=== PATIENT | female | born 2000 | race Caucasian/White ===

== ENCOUNTER 2022-07-25 13:54 | Emergency (ER) | payer BC, SELFPAY ==
[2022-07-25 13:56] VITALS: BP 132/92; PULSE 126; RESP 18; TEMP 36.6; O2SAT 100; BMI 18.3
[2022-07-25 14:19] VITALS: BP 132/92; PULSE 126; RESP 18; TEMP 36.6; O2SAT 100
[2022-07-25] MEDS: 0.9% Normal Saline 1,000 ML 1000 ML IV (14:51)
--- NOTE | 2022-07-25 14:51 | EDS_ITS ---
HPI History of Present Illness Chief Complaint: Cellulitis Informant: patient Onset/Context/Timing Onset: Days Context: Gradual Onset Timing: Continuous Quality: Pressure Location: Upper lip Worsened by: Nothing Relieved by: Ice Narrative Narrative: Patient presents with pain and swelling to her upper lip that has been gotten progressively worse over the past few days. Patient states she was recently started on Bactrim for this. Patient states she started this yesterday and her swelling is worse today. Patient states it is radiating into her left cheek area. Patient states it is mainly over the upper lip. Patient denies any difficulty breathing or difficulty swallowing. Patient noted a pimple to the area underneath her nose. Patient denies any discharge or drainage. Patient denies any other rashes. Patient denies any fevers or chills. PFSH PFSH Medical History no medical history no medical history Home Medications cephalexin 500 mg capsule 500 mg PO Q6 #40 CAPSULES 07/25/22 [Rx Last Taken Unknown] sulfamethoxazole 800 mg-trimethoprim 160 mg tablet (Bactrim DS) 1 tab PO DAILY 07/25/22 [History Last Taken Unknown] Allergy/AdvReac Type Severity Reaction Status Date / Time No Known Allergies Allergy Verified 07/25/22 13:55 Surgical History no surgical history no surgical history Social History Smoking Status: Never smoker ROS ROS ED Constitutional Constitutional ED: Denies chills or fever(s) Eyes Eyes: Denies blurry vision or change in vision ENT ENT ED: Denies rhinorrhea or sore throat Cardiovascular Cardiovascular: Denies chest pain or palpitations Respiratory/Chest Respiratory/Chest: Denies cough or dyspnea Gastrointestinal Gastrointestinal: Denies nausea or vomiting Genitourinary Genitourinary ED: Denies dysuria or hematuria Musculoskeletal Musculoskeletal: Denies back pain or neck pain Integumentary Reports rash; Denies abscess Neurologic Neurologic: Denies headache(s) or weakness Allergic/Immunologic Allergic/Immunologic ED: Denies mouth swelling or urticaria EXAM Physical Exam Const Vital Signs: 07/25/22 13:56 07/25/22 14:17 07/25/22 14:19 Temperature 97.8 F 97.8 F Temperature Source Temporal Temporal Pulse Rate 126 H 126 H Respiratory Rate 18 18 Respiratory Effort Normal Non-Labored Respiratory Pattern Normal Blood Pressure 132/92 H 132/92 H Blood Pressure Mean 105 105 Pulse Ox 100 100 Oxygen Delivery Method Room Air Room Air 07/25/22 16:07 Temperature Temperature Source Pulse Rate 88 Respiratory Rate 16 Respiratory Effort Respiratory Pattern Blood Pressure 120/79 Blood Pressure Mean 92 Pulse Ox 98 Oxygen Delivery Method Room Air Positive well nourished and well developed General Appearance ED: well developed and NAD HEENT Reports moist mucous membranes HEENT Narrative: There is tenderness and edema over the upper lip. There are some induration. Oral mucosa is pink and moist. Oropharynx is clear. Airway is patent. Teeth are intact. There is no gingival edema. There is no swelling of the lower lip. There is no sublingual edema or erythema. Neck supple and no JVD Neuro oriented x3, CN's II-XII intact bilaterally and no sensory deficits noted Sensorium / Orientation: alert Motor Exam: strength 5/5 throughout Psych mental status grossly normal Skin Skin Narrative: There is tenderness and induration over the upper lip, slightly worse on the left. There are 2 pustules in the midline at the base of the nasal septum. There is no fluctuance. There is no discharge or drainage. There is no surrounding erythema or warmth. MDM MDM MDM Narrative Medical decision making narrative: Patient was given a liter of IV fluids. Patient was given a dose of Unasyn here. Patient will be instructed to continue the Bactrim as prescribed. Patient will be given a prescription for Keflex to take in addition to this. Patient was instructed to use warm compresses to the area. Patient was instructed to follow-up with her primary care physician in 5 to 7 days. Patient understood and was agreeable with the plan. All questions were answered. Treatment and Re-Evaluation Narrative: His heart rate improved to 88 after IV fluids. Discharge Plan Triage Chief Complaint: Cellulitis ED Provider: John Fajardo Dx/Rx/DC Orders Clinical Impression: Cellulitis of face Instructions: ED Cellulitis, Facial Prescriptions: New cephalexin [cephalexin] 500 mg capsule 500 mg PO Q6 Qty: 40 0RF No Action sulfamethoxazole-trimethoprim [Bactrim DS] 800-160 mg Tablet 1 tab PO DAILY Primary Care Provider: [facility] Doctor,Out of Referrals: [facility] Doctor,Out of [Primary Care Provider] - 3-5 Days Disposition Disposition: Home, Self Care
[2022-07-25 16:07] VITALS: BP 120/79; PULSE 88; RESP 16; O2SAT 98
== END 2022-07-25 16:21 | disposition home or self-care (01) ==
PROVIDERS: Emergency Provider Emergency Medicine; Visit Provider Emergency Medicine
DX: L03.211 Cellulitis of face (principal)
CPT/HCPCS: 96365; 99283; J7030; J0295

== ENCOUNTER 2022-07-26 09:56 | Emergency (ER) | payer BC, SELFPAY ==
[2022-07-26 09:57] VITALS: BP 117/89; PULSE 90; RESP 14; TEMP 36.3; O2SAT 100; BMI 18.8
[2022-07-26 10:09] VITALS: BP 117/89; PULSE 90; RESP 14; TEMP 36.3; O2SAT 100
--- NOTE | 2022-07-26 10:14 | EX.ED.DYSGE1 ---
HPI <LATRICIA Sherman - Last Filed: 07/26/22 12:37> History of Present Illness Chief Complaint: Cellulitis Narrative Narrative: Patient is a 21-year-old female with no significant medical history presents to the emergency department for ongoing cellulitis to the left nares, left upper lip. This is the patient's third visit to medical functional for this issue. Patient was seen here yesterday, given IV Unasyn, she was on Bactrim at that time, patient was added with Keflex. Patient states that she continued to have worsening pain, she is continue to have worsening swelling. Patient now has pain to the upper lip into her cheek. Patient states it is starting to affect her eye. Patient states to have subjective chills. She denies any nausea or vomiting. Denies any history of shortness of breath. PFSH <LATRICIA Sherman - Last Filed: 07/26/22 12:37> PFSH Medical History no medical history Home Medications cephalexin 500 mg capsule 500 mg PO Q6 #40 CAPSULES 07/25/22 [Rx Last Taken Unknown] sulfamethoxazole 800 mg-trimethoprim 160 mg tablet (Bactrim DS) 1 tab PO DAILY 07/25/22 [History Last Taken Unknown] Allergy/AdvReac Type Severity Reaction Status Date / Time No Known Allergies Allergy Verified 07/26/22 09:59 Social History Smoking Status: Never smoker ROS <LATRICIA Sherman - Last Filed: 07/26/22 12:37> ROS ED ROS Narrative Constitutional: Negative for fever, weight loss, weakness. Positive for chills Eyes: Negative for vision loss, vision change, double vision ENT: Negative for any sore throat, ear pain, congestion. Positive for redness and swelling to the left Mck[place], drainage, swelling to the left lip, facial pain to the left side Cardiovascular: Negative for any chest pain, tightness, palpitations Respiratory: Negative for any cough, sputum production, hemoptysis, dyspnea, dyspnea on exertion, orthopnea Gastrointestinal: Negative for any abdominal pain, nausea, vomiting, diarrhea, constipation, blood in stool, blood in vomit : Negative for any urinary frequency, dysuria, retention, blood in urine Muscle skeletal: Negative for any muscle joint pain, stiffness, myalgias, arthralgias, neck pain, back pain Neurological: Negative for any headache, syncope, numbness or tingling, dizziness Skin: Negative for any rashes, lumps, itching, abrasions, lacerations Psychiatric: Negative for any depression, anxiety, stress, suicidal ideation, homicidal ideation Hematologic: Negative for any easy bruising, excessive bruising, easy bleeding Allergies: Negative for any eczema, hives, rash EXAM <LATRICIA Sherman - Last Filed: 07/26/22 12:37> Physical Exam Narrative Exam Narrative: Vital signs reviewed. Patient is in no respiratory distress. Vital signs are stable HEET: Head normocephalic atraumatic, TMs clear bilaterally. Posterior pharynx is clear, moist mucous membranes. Patient's left nares shows some erythema, slight drainage. There is induration. Patient has significant swelling to the left lip, pain on palpation to the left frontal and maxillary sinus. Patient has slight edema around her eye however no specific eye pain. Patient's mucous membranes are normal. There is induration, tenderness to the left upper lip. There is no drainage in her mouth. Patient able speak complete sentences. Neck: Supple with no lymphadenopathy or tenderness. No signs of meningismus, negative jolt sign. Cardiac: Regular rate and rhythm no murmurs gallops or rubs, equal peripheral pulses bilaterally. Respiratory: Lungs clear to auscultation bilaterally. No chest tenderness. Abdomen: Soft, nontender, nondistended. No abdominal bruit or pulsatile masses. No hepatosplenomegaly Extremities: No peripheral edema, no signs of gross trauma or deformity. Active full range of motion of all extremities. Neuro: Cranial nerves II through XII intact, no focal neurological deficits. Skin: Clean dry and intact with no rash, purpura, petechiae, vesicles or pustules. Backs/flank: No CVA tenderness, no midline spinal tenderness, no deformity. Psych: Normal mood and affect. No SI, HI or acute psychosis. Const Vital Signs: 07/26/22 09:57 07/26/22 10:09 07/26/22 12:21 Temperature 97.3 F L 97.3 F L 98.3 F Temperature Source Temporal Oral Oral Pulse Rate 90 90 92 Respiratory Rate 14 14 16 Blood Pressure 117/89 H 117/89 H 119/60 Blood Pressure Mean 98 98 79 Pulse Ox 100 100 100 Oxygen Delivery Method Room Air Room Air Room Air Positive well nourished and well developed General Appearance ED: well developed <Osito Kasper MD - Last Filed: 07/26/22 15:07> Physical Exam Const Vital Signs: 07/26/22 09:57 07/26/22 10:09 07/26/22 12:21 Temperature 97.3 F L 97.3 F L 98.3 F Temperature Source Temporal Oral Oral Pulse Rate 90 90 92 Respiratory Rate 14 14 16 Blood Pressure 117/89 H 117/89 H 119/60 Blood Pressure Mean 98 98 79 Pulse Ox 100 100 100 Oxygen Delivery Method Room Air Room Air Room Air MDM <LATRICIA Sherman - Last Filed: 07/26/22 12:37> MDM Lab Data Labs: Laboratory Results - last 24 hr 07/26/22 07/26/22 07/26/22 10:37 10:37 10:37 WBC 10.3 RBC 4.25 Hgb 12.3 Hct 37.6 MCV 88.5 MCH 28.9 MCHC 32.7 RDW Std Deviation 43.5 RDW Coeff of Frances 13.3 Plt Count 311 MPV 10.0 Immature Gran % (Auto) 0.300 Neut % (Auto) 80.1 H Lymph % (Auto) 12.9 L [place] % (Auto) 6.2 Eos % (Auto) 0.3 Baso % (Auto) 0.2 Absolute Neuts (auto) 8.2 H Absolute Lymphs (auto) 1.32 Nucleated RBC % 0 Sodium 136 Potassium 4.3 Chloride 107 Carbon Dioxide 22.0 Anion Gap 7 BUN 12 Creatinine 0.67 Estim Creat Clear Calc 108.66 Est GFR (MDRD) Af Amer 142 Est GFR (MDRD) Non-Af 118 BUN/Creatinine Ratio 17.8 Glucose 87 Lactic Acid 1.5 Calcium 9.1 Radiography Diagnostic Testing: Clinical Impression(s) from Imaging Studies Facial/Sinus 07/26/22 10:16 IMPRESSION: 1. 2.2 x 0.7 x 2 cm irregular rim-enhancing early abscess in the upper lip buccal space extending to the left of midline but no associated bronchogenic abscess or periapical abscess. 2. Benign reactive nodes in the suprahyoid neck. 3. Moderate mucosal thickening in the left maxillary sinus, mild mucosal thickening in the right maxillary sinus and mild mucosal thickening of the ethmoid sinuses. Electronically Signed: Osito Smiley MD at 11:56 EST , Treatment and Re-Evaluation Narrative: All radiologic examinations were read, reviewed by the emergency department attending. From these reads, a plan of care will be put in place. Patient appears to be in no respiratory distress, patient appears nontoxic, vital signs are stable. Patient presents to the emergency department for ongoing swelling to the left nares, left upper lip. This is the patient's third visit to medical professional for this issue, at this time I believe that more of a work-up needs to be completed. Patient will have IV fluids, IV antibiotics, as well as a CT scan of the maxillofacial bones and soft tissue with IV contrast. Patient received some basic laboratory values, patient CBC was unremarkable, chemistries were unremarkable. Patient did receive a CT scan of the maxillofacial area, there was a 2.2 x 0.7 x 2 cm irregular rim-enhancing early abscess. This is of the upper lip. Benign reactive nodes in the suprahyoid neck. However there is no evidence to suspect any deep tissue infection. Patient did receive IV fluids as well as IV vancomycin. Patient is currently on Keflex as well as Bactrim. I did speak with the hospitalist regarding admission however hospitalist does not feel the patient needs admitted at this time. I did speak with the patient, secondary to being no significant signs of deep tissue infection, no signs or symptoms of sepsis, I believe that this is appropriate. Patient will continue the Keflex as well as the Bactrim. She will use warm compresses. At this time consider I&D however there is no specific area to I&D at this time. Patient will continue to use warm compress as well as the antibiotics. She was given strict return precaution. Patient was accompanied by her friend who also verbally understand importance of follow-up. Patient will follow-up with ear nose and throat. As well as her PCP. Patient is happy with plan of care and stable for discharge. <Osito Kasper MD - Last Filed: 07/26/22 15:07> [facility] Narrative Medical decision making narrative: I have personally performed a face to face assessment of the patient and have reviewed the BRIA Note. I performed a substantive portion of the visit including all aspects of the following. My sapp findings include: History is lip swelling, left upper lip, on antibiotics since , seen in the emergency department yesterday, reported worsening. Exam is afebrile. Vital signs noted. Nontoxic-appearing. Positive swelling left upper lip. No fluctuance. Medical Decision Making I reviewed the prior outpatient records. IV antibiotics, check CT, check labs. 1 dose of IV antibiotics. Discussed with hospitalist, who does not wish to admit or assigned to observation. Symptomatic treatment, continued antibiotics. Discharge. Other additions or changes: [None] Lab Data Attestation: I reviewed the patient's lab results. Labs: Laboratory Results - last 24 hr 07/26/22 07/26/22 07/26/22 10:37 10:37 10:37 WBC 10.3 RBC 4.25 Hgb 12.3 Hct 37.6 MCV 88.5 MCH 28.9 MCHC 32.7 RDW Std Deviation 43.5 RDW Coeff of Frances 13.3 Plt Count 311 MPV 10.0 Immature Gran % (Auto) 0.300 Neut % (Auto) 80.1 H Lymph % (Auto) 12.9 L [place] % (Auto) 6.2 Eos % (Auto) 0.3 Baso % (Auto) 0.2 Absolute Neuts (auto) 8.2 H Absolute Lymphs (auto) 1.32 Nucleated RBC % 0 Sodium 136 Potassium 4.3 Chloride 107 Carbon Dioxide 22.0 Anion Gap 7 BUN 12 Creatinine 0.67 Estim Creat Clear Calc 108.66 Est GFR (MDRD) Af Amer 142 Est GFR (MDRD) Non-Af 118 BUN/Creatinine Ratio 17.8 Glucose 87 Lactic Acid 1.5 Calcium 9.1 Radiography Diagnostic Testing: Clinical Impression(s) from Imaging Studies Facial/Sinus 07/26/22 10:16 IMPRESSION: 1. 2.2 x 0.7 x 2 cm irregular rim-enhancing early abscess in the upper lip buccal space extending to the left of midline but no associated bronchogenic abscess or periapical abscess. 2. Benign reactive nodes in the suprahyoid neck. 3. Moderate mucosal thickening in the left maxillary sinus, mild mucosal thickening in the right maxillary sinus and mild mucosal thickening of the ethmoid sinuses. Electronically Signed: Osito Smiley MD at 11:56 EST , Discharge Plan Triage Chief Complaint: Cellulitis ED Midlevel Provider: Edu Johnson ED Provider: Osito Kasper Dx/Rx/DC Orders Clinical Impression: Cellulitis of face, Abscess, Lip swelling Instructions: Abscess Drainage, ED Abscess Antibiotic Treatment Only, ED Cellulitis, Facial Prescriptions: No Action sulfamethoxazole-trimethoprim [Bactrim DS] 800-160 mg Tablet 1 tab PO DAILY cephalexin [cephalexin] 500 mg capsule 500 mg PO Q6 Qty: 40 0RF Primary Care Provider: Care Physician,No Primary Referrals: Edu Marlow MD [Med Staff - Active Staff] - [facility] Doctor,Out of [Non-Staff] - Activity Restrictions/Additional Instructions: Please use warm compresses. Take antibiotics until finished. Follow-up Disposition Disposition: Home, Self Care Discharge Date/Time: 07/26/22 12:47
--- NOTE | 2022-07-26 10:16 | CT_ITS ---
EXAM: CT MAXILLOFACIAL WITH INTRAVENOUS CONTRAST CLINICAL INDICATION: Swelling in upper lip and face x3 days. Evaluate for abscess. TECHNIQUE: Helically acquired images were obtained of the face with intravenous contrast. This CT exam was performed using one or more of the following dose reduction techniques: automated exposure control, adjustment of the mA and/or kV according to patient size, and/or use of iterative reconstruction technique. This report was created using [employer] report generation technology. CONTRAST: IV 100mL Isovue-370 RADIATION DOSE: CTDIvol = 29.38 mGy, DLP = 584.19 mGy-cm COMPARISON: None. FINDINGS: BONES/JOINTS: Unremarkable. No displaced fracture. No discrete lytic or blastic abnormalities. SOFT TISSUES: 2.2 x 0.7 x 2 cm irregularly rim-enhancing early abscess in the upper lip buccal space extending to the left of midline. No associated odontogenic abscess or periapical abscess. LYMPH NODES: Small benign reactive enhancing nodes in levels 1A, Ib, 2A and 2B and level 5A. ORBITS: Unremarkable. Both globes are unremarkable. Extraocular muscles are normal. Retrobulbar fat appears unremarkable. SUBMANDIBULAR/PAROTID GLANDS: Unremarkable. Normal parotid spaces and parapharyngeal spaces. Normal submandibular spaces and sublingual spaces. SINUSES: Moderate mucosal thickening in the left maxillary sinus. Mild mucosal thickening in the right maxillary sinus. Mild mucosal thickening in the ethmoid sinuses. Normal sphenoid sinus and left frontal sinus. Developmentally absent right frontal sinus. MASTOID AIR CELLS: Unremarkable as visualized. Clear. DENTAL: No acute findings. No periodontal osseous erosion. NASOPHARYNX: Unremarkable. Normal nasopharynx, oropharynx and hypopharynx. OTHER FINDINGS: Normal case monitor spaces. CT/Sinus/Facial Bone WITH Contras IMPRESSION: 1. 2.2 x 0.7 x 2 cm irregular rim-enhancing early abscess in the upper lip buccal space extending to the left of midline but no associated bronchogenic abscess or periapical abscess. 2. Benign reactive nodes in the suprahyoid neck. 3. Moderate mucosal thickening in the left maxillary sinus, mild mucosal thickening in the right maxillary sinus and mild mucosal thickening of the ethmoid sinuses. Electronically Signed: Osito Smiley MD at 11:56 EST ,
[2022-07-26] MEDS: 0.9% Normal Saline 1,000 ML 1000 ML IV (10:40)
[2022-07-26 10:45] LABS: Absolute Lymphocyte Count 1.32 X10^3/uL (0.83-4.51); Absolute Neutrophil Count 8.2 X10^3/uL (2.0-7.7); Basophil# 0.02 X10^3/uL; Basophil% 0.2 % (0-1); Eosinophil# 0.03 X10^3/uL; Eosinophils% 0.3 % (0-5); Hematocrit 37.6 % (37-47); Hemoglobin 12.3 g/dL (12.0-15.0); Lymphocyte # 1.32 X10^3/ul (0.83-4.51); Lymphocyte % 12.9 % (19-41); Mean Corp Hgb Conc 32.7 g/dL (32-36); Mean Corpuscular Hgb 28.9 pg (27.0-32.0); Mean Corpuscular Volume 88.5 fL (81-99); Monocyte# 0.64 X10^3/uL; Monocyte% 6.2 % (0-10); NRBC Flagged by Analyzer 0 % (0-5); Neutrophil # 8.21 X10^3/uL (2.7-7.7); Neutrophil % 80.1 % (47-70); Platelet Count 311 K/mm3 (150-450); RBC Distribution Width CV 13.3 % (11.6-14.6); RBC Distribution Width SD 43.5 fl (35.1-43.9); Red Blood Count 4.25 M/mm3 (4.2-5.4); White Blood Count 10.3 K/mm3 (4.4-11.0)
[2022-07-26 10:56] LABS: Anion Gap 7 (5-15); BUN 12 mg/dL (7-18); BUN/Creat Ratio 17.8 RATIO (10-20); Calcium,Total 9.1 mg/dL (8.5-10.1); Chloride 107 mmol/L (98-107); Creatinine, Serum 0.67 mg/dL (0.55-1.02); EST Glomerular Filtration Rate 118 mL/min (>60); Est Glom Filt Rate - Afr Amer 142 mL/min (>60); Estimated Creatinine Clearance 108.66 ml/min; Glucose 87 mg/dL (74-106); Potassium 4.3 mmol/L (3.5-5.1); Sodium Level 136 mmol/L (136-145)
[2022-07-26 11:05] LABS: Lactic Acid 1.5 mmol/L (0.4-1.9)
[2022-07-26 12:21] VITALS: BP 119/60; PULSE 92; RESP 16; TEMP 36.8; O2SAT 100
== END 2022-07-26 12:47 | disposition home or self-care (01) ==
PROVIDERS: Nurse Practitioner; Emergency Provider Emergency Medicine; Visit Provider Emergency Medicine
DX: L03.211 Cellulitis of face (principal); L02.91 Cutaneous abscess, unspecified
CPT/HCPCS: 70487; 80048; 83605; 85025; 96365; 96366; 99282; J7030; J7050; Q9967; A4216